=== PATIENT | male | born 1990 | race Caucasian/White ===

== ENCOUNTER 2024-07-24 02:38 | Emergency (ER) | payer MEDICAID ==
[~2024-07-24] VITALS: Ht 177.8 cm; Wt 63.6 kg
[2024-07-24 02:39] VITALS: TEMP 96.4
[2024-07-24 02:51] LABS: BASOPHILS # (AUTO) 0.1 X10'3 (0-0.2); BASOPHILS % (AUTO) 0.4 % (0-1); EOSINOPHILS % (AUTO) 0.2 % (0-6); HEMATOCRIT 45.5 % (42.0-52.0); HEMOGLOBIN 15.2 g/dl (14.0-17.9); LYMPHOCYTES # (AUTO) 0.7 X10'3 (1.1-4.8); LYMPHOCYTES % (AUTO) 3.7 % (21-51); MEAN CORPUSCULAR HEMOGLOBIN 32.6 PG (27.0-31.0); MEAN CORPUSCULAR HGB CONC 33.5 g/dL (33.0-36.5); MEAN CORPUSCULAR VOLUME 97.4 FL (78-98); MEAN PLATELET VOLUME 7.2 FL (7.4-10.4); MONOCYTES # (AUTO) 0.8 X10'3 (0-0.9); MONOCYTES % (AUTO) 3.9 % (2-12); NEUTROPHILS # (AUTO) 18.6 X10'3 (1.8-7.7); NEUTROPHILS % (AUTO) 91.8 % (42-75); PLATELET COUNT 297 X10'3 (140-440); RED BLOOD COUNT 4.68 X10'6 (4.70-6.10); RED CELL DISTRIBUTION WIDTH 12.6 % (11.5-14.5); WHITE BLOOD COUNT 20.3 X10'3 (4.5-11.0)
[2024-07-24 03:05] LABS: ALANINE AMINOTRANSFERASE 143 U/L (12-78); ALBUMIN 3.9 G/DL (3.4-5.0); ALBUMIN/GLOBULIN RATIO 1.1 (1.1-1.5); ALKALINE PHOSPHATASE 113 IU/L (46-116); ANION GAP 11 (8-16); ASPARTATE AMINO TRANSFERASE 147 U/L (10-37); BILIRUBIN,TOTAL 0.2 MG/DL (0.1-1.0); BLOOD UREA NITROGEN 17 MG/DL (7-18); BUN/CREATININE RATIO 9.2 (10.0-20.0); CALCIUM 7.8 MG/DL (8.5-10.1); CHLORIDE 103 MMOL/L (99-107); CREATININE 1.84 MG/DL (0.60-1.10); GLUCOSE 326 MG/DL (70-104); POTASSIUM 4.7 MMOL/L (3.5-5.1); SODIUM 141 MMOL/L (135-145); TOTAL PROTEIN 7.6 G/DL (6.4-8.2); eCRCL 51 ML/MIN; eGFR 42 ML/MIN
[2024-07-24 03:08] LABS: CREATINE KINASE 80 U/L (39-308); MAGNESIUM 2.7 MG/DL (1.5-2.4)
[2024-07-24 03:13] LABS: ETHANOL < 10 MG/DL (<10)
[2024-07-24] MEDS: normal saline 1000ML IV soln IVB ONE (03:28)
[2024-07-24] MEDS ORDERED: levetiracetam inj 1,000 MG in normal saline 100ml IV soln 100 ML IV ONE (03:30)
[2024-07-24] MEDS: levetiracetam-NACL1000mg/100ml 100 ML IV ONE ×2 (03:37→07:45)
[2024-07-24] MEDS: ondansetron/PF 4mg/2ml inj IV ONE (03:49)
[2024-07-24 05:55] LABS: ALBUMIN 3.5 G/DL (3.4-5.0); ANION GAP 8 (8-16); BLOOD UREA NITROGEN 18 MG/DL (7-18); BUN/CREATININE RATIO 14.3 (10.0-20.0); CALCIUM 7.5 MG/DL (8.5-10.1); CHLORIDE 107 MMOL/L (99-107); CREATININE 1.26 MG/DL (0.60-1.10); GLUCOSE 86 MG/DL (70-104); POTASSIUM 4.3 MMOL/L (3.5-5.1); SODIUM 144 MMOL/L (135-145); TOTAL CARBON DIOXIDE 28.8 MMOL/L (24-32); eCRCL 74 ML/MIN; eGFR 66 ML/MIN
[2024-07-24 06:22] LABS: BILIRUBIN,URINE NEGATIVE (Neg); CLARITY,URINE CLEAR (Clear); COLOR,URINE YELLOW (Yellow); GLUCOSE, URINE 250 mg/dl (Neg); KETONES,URINE NEGATIVE (Neg); LEUKOCYTE ESTERASE ,URINE NEGATIVE (Neg); NITRITES, URINE NEGATIVE (Neg); OCCULT BLOOD,URINE TRACE-INTACT (Neg); PROTEIN,URINE 30 mg/dl (Neg); UROBILINOGEN,URINE 0.2 E.U/dL (0.2-1.0)
[2024-07-24 06:24] LABS: URINE AMPHETAMINE SCREEN POSITIVE (Neg); URINE BARBITUATE SCREEN NEGATIVE (Neg); URINE BENZODIAZEPINES SCREEN NEGATIVE (Neg); URINE CANNABINOID SCREEN POSITIVE (Neg); URINE COCAINE SCREEN NEGATIVE (Neg); URINE METHADONE SCREEN NEGATIVE (Neg); URINE OPIATE SCREEN NEGATIVE (Neg); URINE PHENCYCLIDINE SCREEN NEGATIVE (Neg)
[2024-07-24 06:39] LABS: UA COLLECTION TYPE CLN CATCH MIDSTREAM
[2024-07-24 06:42] LABS: BACTERIA,URINE FEW /HPF (Neg); FINE GRANULAR CAST 0-3 /LPF (NEGATIVE); MUCUS STRANDS NONE SEEN /LPF (Neg); SQUAMOUS EPITHELIAL CELL,UR FEW /LPF (FEW); WBC,URINE 0-4 /HPF (0-4)
[2024-07-24] MEDS ORDERED: KEP500T PO (07:59)
[2024-07-24 08:15] VITALS: BP 90/63; PULSE 103; RESP 16; O2SAT 95
== END 2024-07-24 08:15 | disposition home or self-care (01) ==
LOC: ER 02:39
DX: R41.82 Altered mental status, unspecified (principal); G40.909 Epilepsy, unspecified, not intractable, without status epilepticus; R73.9 Hyperglycemia, unspecified
CPT/HCPCS: 36415; 70450; 71045; 80048; 80053; 80305; 80320; 81001; 82550; 83605; 83735; 84484; 85025; 93005; 96374; 96375; 96376; 99285; J1953; J2405; J7030; 96365; 96366

== ENCOUNTER 2024-08-06 13:41 | Emergency (ER) | payer MEDICAID ==
[~2024-08-06] VITALS: Ht 177.8 cm; Wt 67.8 kg
[~2024-08-06 13:41] MED LIST: KEP500T PO
[2024-08-06 13:44] VITALS: TEMP 98.8
[2024-08-06 17:25] LABS: BASOPHILS % (AUTO) 0.4 % (0-1); EOSINOPHILS # (AUTO) 0.1 X10'3 (0-0.9); EOSINOPHILS % (AUTO) 1.1 % (0-6); HEMATOCRIT 36.7 % (42.0-52.0); HEMOGLOBIN 12.5 g/dl (14.0-17.9); LYMPHOCYTES # (AUTO) 1.2 X10'3 (1.1-4.8); LYMPHOCYTES % (AUTO) 11.5 % (21-51); MEAN CORPUSCULAR HGB CONC 34.1 g/dL (33.0-36.5); MEAN PLATELET VOLUME 6.6 FL (7.4-10.4); MONOCYTES # (AUTO) 0.8 X10'3 (0-0.9); MONOCYTES % (AUTO) 7.6 % (2-12); NEUTROPHILS # (AUTO) 8.4 X10'3 (1.8-7.7); NEUTROPHILS % (AUTO) 79.4 % (42-75); PLATELET COUNT 295 X10'3 (140-440); RED CELL DISTRIBUTION WIDTH 12.5 % (11.5-14.5); WHITE BLOOD COUNT 10.6 X10'3 (4.5-11.0)
[2024-08-06 17:47] LABS: ALANINE AMINOTRANSFERASE 173 U/L (12-78); ALBUMIN 2.9 G/DL (3.4-5.0); ALKALINE PHOSPHATASE 137 IU/L (46-116); ANION GAP 4 (8-16); ASPARTATE AMINO TRANSFERASE 138 U/L (10-37); BILIRUBIN,TOTAL 0.3 MG/DL (0.1-1.0); BLOOD UREA NITROGEN 10 MG/DL (7-18); BUN/CREATININE RATIO 14.5 (10.0-20.0); C-REACTIVE PROTEIN 3.73 MG/DL (0.0-0.5); CHLORIDE 103 MMOL/L (99-107); CREATININE 0.69 MG/DL (0.60-1.10); GLUCOSE 99 MG/DL (70-104); POTASSIUM 4.2 MMOL/L (3.5-5.1); SODIUM 138 MMOL/L (135-145); TOTAL CARBON DIOXIDE 31.2 MMOL/L (24-32); TOTAL PROTEIN 5.8 G/DL (6.4-8.2); eCRCL 143 ML/MIN; eGFR > 90 ML/MIN
[2024-08-06 18:04] VITALS: BP 98/64; PULSE 68; RESP 15; O2SAT 100
[2024-08-06] MEDS: ibuprofen tablet 400 MG TABLET PO ONE (18:22)
== END 2024-08-06 18:25 | disposition home or self-care (01) ==
LOC: ER 13:41
DX: M79.89 Other specified soft tissue disorders (principal); Z88.8 Allergy status to other drugs, medicaments and biological substances; Z79.899 Other long term (current) drug therapy
CPT/HCPCS: 36415; 80053; 85025; 86140; 93971; 99284

== ENCOUNTER 2024-09-24 12:22 | Emergency (ER) | payer MEDICAID, OTHER ==
[~2024-09-24] VITALS: Ht 177.8 cm; Wt 68.2 kg
[2024-09-24 12:27] VITALS: BP 129/84; PULSE 71; RESP 16; TEMP 98; O2SAT 98
--- NOTE | 2024-09-24 12:58 | Physician Documentation ---
HPI ~ General Chief Complaint: Medication Request Stated Complaint: MED REQUEST Time Seen by MD: 12:50 History of Present Illness HPI Comments Patient is seen today requesting a bridge of his Suboxone. He states he has been off Suboxone for few months now and states he relapsed on fentanyl stating his last use of fentanyl was yesterday. Patient is wanting to get back on an MA T program. Patient denies any chest pain or shortness of breath or abdominal pain or nausea, vomiting, diarrhea. He has no other concern or complaint at this time. Medication Reconciliation Allergies: Coded Allergies: aripiprazole (Unverified Allergy, Unknown, 08/06/24) divalproex sodium (Unverified Allergy, Unknown, 08/06/24) Scheduled Levetiracetam (Keppra), 1 TAB PO Q12H Review of Systems Constitutional: Denies: chills, fever, weakness Eyes: Denies: pain, blurred vision ENT: Denies: ear pain, nose pain, throat pain, mouth pain Respiratory: Denies: cough, shortness of breath Cardiovascular: Denies: chest pain, palpitations Gastrointestinal: Denies: abdominal pain, nausea, vomiting Genitourinary: Denies: burning, dysuria Male Genitalia: Denies: penile discharge, testicular pain Neurological: Denies: headache, dizziness Musculoskeletal: Denies: pain, swelling Integumentary: Denies: rash, lesions Allergic/Immunologic: Denies: hives, itching Hematologic/Lymphatic: Denies: no symptoms reported Psychiatric: Denies: depression, anxiety Physical Exam Physical Exam Vital Signs: Temperature: 98.0, Source: Temporal, Heart Rate: 71, Respiratory Rate: 16, BP: 129/84, Pulse Oximetry: 98, Weight: 68.200 Oxygen Flow Rate: 0 Physical Exam General: Awake and Alert, no acute distress. HEENT: Conjunctiva pink, Sclera clear, Mucus Membranes moist. Neck: Supple without masses and tenderness. Resp: Unlabored. Lungs clear to auscultation bilaterally. Heart: Regular Rate and rhythm, normal S1 and S2 without murmur, rub or gallop. Abdomen: Soft and non tender no organomegaly Extremities: No cyanosis,clubbing or edema. Skin: Warm and Dry. Progress Results/Orders Results/Orders Vital Signs 09/24/24 12:27 Temp 98.0 Pulse 71 Resp 16 B/P (MAP) 129/84 Pulse Ox 98 O2 Flow Rate 0 Medical Decision Making Findings Patient is seen today requesting a bridge of his Suboxone. He states he has been off Suboxone for few months now and states he relapsed on fentanyl stating his last use of fentanyl was yesterday. Patient is wanting to get back on an MAT program. Patient denies any chest pain or shortness of breath or abdominal pain or nausea, vomiting, diarrhea. He has no other concern or complaint at this time. Patient given prescription of Suboxone 8/2 mg, one film sublingual twice a day for seven days. 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 Patient strongly advised to not start the Suboxone until he has gone at least 72 hours from his last use of fentanyl to avoid any precipitated withdrawal. Patient voiced understanding. Departure Disposition: HOME / SELF CARE / HOMELESS Impression: Primary Impression: Opioid dependence, uncomplicated Condition: Stable Discharge Instructions: Opioid Use Disorder Additional Instructions: Patient given prescription of Suboxone 8/2 mg, one film sublingual twice a day for seven days. 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 Patient strongly advised to not start the Suboxone until he has gone at least 72 hours from his last use of fentanyl to avoid any precipitated withdrawal. Patient voiced understanding. Referrals: NO PRIMARY CARE PROVIDER (PCP) Prescriptions Buprenorphine Hcl/Naloxone Hcl (Suboxone 8 Mg-2 Mg Sl Film) 8 Mg-2 Mg Film 1 STRIP SL BID for 7 Days, #14 STRIP Prov: ALVARO GONZALEZ PAC 09/24/24 Signature Scribe Signature: No scribe Attestation: No scribe ALVARO GONZALEZ PAC September 24, 2024 12:58
[2024-09-24] MEDS ORDERED: BUPR1FIL3 SL (13:02)
== END 2024-09-24 13:14 | disposition home or self-care (01) ==
LOC: ER 12:22
DX: F11.20 Opioid dependence, uncomplicated (principal); Z76.0 Encounter for issue of repeat prescription; Z88.8 Allergy status to other drugs, medicaments and biological substances; Z79.899 Other long term (current) drug therapy
CPT/HCPCS: 99281

== ENCOUNTER 2024-10-05 11:11 | Emergency (ER) | payer OTHER ==
[~2024-10-05] VITALS: Ht 177.8 cm; Wt 69.9 kg
[2024-10-05 11:34] VITALS: BP 129/78; PULSE 72; RESP 18; TEMP 97.8; O2SAT 98
[2024-10-05 12:04] LABS: BASOPHILS # (AUTO) 0.1 X10'3 (0-0.2); BASOPHILS % (AUTO) 0.9 % (0-1); EOSINOPHILS # (AUTO) 0.3 X10'3 (0-0.9); EOSINOPHILS % (AUTO) 4.3 % (0-6); HEMATOCRIT 41.8 % (42.0-52.0); LYMPHOCYTES # (AUTO) 1.7 X10'3 (1.1-4.8); LYMPHOCYTES % (AUTO) 28.1 % (21-51); MEAN CORPUSCULAR HEMOGLOBIN 31.1 PG (27.0-31.0); MEAN CORPUSCULAR HGB CONC 33.4 g/dL (33.0-36.5); MEAN PLATELET VOLUME 6.8 FL (7.4-10.4); MONOCYTES # (AUTO) 0.6 X10'3 (0-0.9); MONOCYTES % (AUTO) 9.9 % (2-12); NEUTROPHILS # (AUTO) 3.5 X10'3 (1.8-7.7); NEUTROPHILS % (AUTO) 56.8 % (42-75); PLATELET COUNT 275 X10'3 (140-440); RED CELL DISTRIBUTION WIDTH 12.8 % (11.5-14.5); WHITE BLOOD COUNT 6.2 X10'3 (4.5-11.0)
[2024-10-05 12:13] LABS: ALANINE AMINOTRANSFERASE 26 U/L (12-78); ALBUMIN 3.2 G/DL (3.4-5.0); ALBUMIN/GLOBULIN RATIO 0.9 (1.1-1.5); ALKALINE PHOSPHATASE 83 IU/L (46-116); ANION GAP 7 (8-16); ASPARTATE AMINO TRANSFERASE 19 U/L (10-37); BILIRUBIN,TOTAL 0.3 MG/DL (0.1-1.0); BLOOD UREA NITROGEN 17 MG/DL (7-18); BUN/CREATININE RATIO 21.5 (10.0-20.0); CALCIUM 8.7 MG/DL (8.5-10.1); CHLORIDE 104 MMOL/L (99-107); CREATININE 0.79 MG/DL (0.60-1.10); GLUCOSE 65 MG/DL (70-104); POTASSIUM 4.1 MMOL/L (3.5-5.1); SODIUM 144 MMOL/L (135-145); TOTAL CARBON DIOXIDE 33.2 MMOL/L (24-32); TOTAL PROTEIN 6.8 G/DL (6.4-8.2); eCRCL 129 ML/MIN; eGFR > 90 ML/MIN
--- NOTE | 2024-10-05 13:05 | Physician Documentation ---
History of Present Illness ~ Chief Complaint: Weakness Stated Complaint: "I NEED TO GET BLOOD WORK DONE" Time Seen by MD: 13:02 OK to notify your PCP?: No HPI Patient reports chronic fatigue. Acknowledges a long history of psychiatric disturbances and takes multiple antipsychotic medications for that time there are no alleviating or exacerbating suture features but just feels like he has not been himself denies any acute issues states I just wanted to get it taken care of Day of Onset: Oct 05, 2024 Medication Reconciliation Allergies: Coded Allergies: aripiprazole (Unverified Allergy, Unknown, 10/05/24) divalproex sodium (Unverified Allergy, Unknown, 10/05/24) Scheduled Levetiracetam (Keppra), 1 TAB PO Q12H Discontinued Medications Buprenorphine Hcl/Naloxone Hcl (Suboxone 8 Mg-2 Mg Sl Film), 1 STRIP SL BID Discontinued Reason: Auto Discontinued Review of Systems All Other Systems at this time: Reviewed and Negative ROS As stated above in the HPI, otherwise all systems are reviewed and negative. Physical Exam Vital Signs: Temperature: 97.8, Source: Temporal, Heart Rate: 72, Respiratory Rate: 18, BP: 129/78, Pulse Oximetry: 98, Weight: 69.900 Physical Exam General: Alert, no apparent distress. Neurologic: Oriented x4. Psychiatric: Normal mood and affect. Skin: Normal color, warm and dry. No edema, no ecchymosis. EENT: pharynx normal Progress Results/Orders Results/Orders Completed Orders - GORGE NAM PAPER STRIPPER Cbc/Diff (10/05/24 11:38) CMP (10/05/24 11:38) Vital Signs 10/05/24 11:34 Temp 97.8 Pulse 72 Resp 18 B/P (MAP) 129/78 Pulse Ox 98 Laboratory Tests Test 10/05/24 11:46 White Blood Count 6.2 Red Blood Count 4.50 L Hemoglobin 14.0 Hematocrit 41.8 L Mean Corpuscular Volume 93.0 Mean Corpuscular Hemoglobin 31.1 H Mean Corpuscular Hemoglobin Concent 33.4 Red Cell Distribution Width 12.8 Platelet Count 275 Mean Platelet Volume 6.8 L Neutrophils (%) (Auto) 56.8 Lymphocytes (%) (Auto) 28.1 Monocytes (%) (Auto) 9.9 Eosinophils (%) (Auto) 4.3 Basophils (%) (Auto) 0.9 Neutrophils # (Auto) 3.5 Lymphocytes # (Auto) 1.7 Monocytes # (Auto) 0.6 Eosinophils # (Auto) 0.3 Basophils # (Auto) 0.1 CBC Comment Sodium Level 144 Potassium Level 4.1 Chloride Level 104 Carbon Dioxide Level 33.2 H Anion Gap 7 L Blood Urea Nitrogen 17 Creatinine 0.79 Estimated GFR/1.73 m2 > 90 BUN/Creatinine Ratio 21.5 H Glucose Level 65 L Calcium Level 8.7 Total Bilirubin 0.3 Aspartate Amino Transf (AST/SGOT) 19 Alanine Aminotransferase (ALT/SGPT) 26 Alkaline Phosphatase 83 Total Protein 6.8 Albumin 3.2 L Globulin 3.6 Albumin/Globulin Ratio 0.9 L Chemistry Comments Medical Decision Making Findings Complete further evaluation patient to have her face to wait for laboratory results patient eloped from ED Differential Dx:Considerations: Include: anemia, CVA, dehydration, dysrhythmia, electrolyte imbalance, encephalopathy, Guillain-[place], hypoglycemia, hypotension, hypovolemia, labyrinthitis, Meniere's disease, myasathenia gravis, myocardial infarction, pulmonary embolus, renal failure, respiratory failure, TIA, VBI, vertigo central, vertigo peripheral, vestibular neuronitis, other Departure Disposition: 01 HOME / SELF CARE / HOMELESS Impression: Primary Impression: Dehydration Additional Impression: Fatigue Condition: Stable Referrals: NO PRIMARY CARE PROVIDER (PCP) Education Educated: Patient Educated regarding: diagnosis Signature Scribe Signature: r Attestation: The note accurately reflects work and decisions made by me.Gorge Lutz NP 10/05/24 18:57 GORGE NAM NP Oct 05, 2024 13:05
== END 2024-10-05 14:33 | disposition left against medical advice (07) ==
LOC: ER 11:12
DX: E86.0 Dehydration (principal); R53.83 Other fatigue; Z88.8 Allergy status to other drugs, medicaments and biological substances; Z79.899 Other long term (current) drug therapy
CPT/HCPCS: 36415; 80053; 85025; 99283

== ENCOUNTER 2024-10-17 11:24 | Emergency (ER) | payer OTHER ==
[~2024-10-17] VITALS: Ht 177.8 cm; Wt 65.7 kg
[2024-10-17 11:37] VITALS: TEMP 98; O2SAT 98
--- NOTE | 2024-10-17 13:55 | Physician Documentation ---
History of Present Illness ~ General Chief Complaint: Mental Health Eval Stated Complaint: SI/WITHDRAWL FROM FENTYNAL Time Seen by MD: 12:53 OK to notify your PCP?: Yes Source: patient Mode of Arrival: POV Exam Limitations: no limitations History of Present Illness Initial Comments 34-year-old male with chief complaint feeling nauseated and pain all over his body since this morning. He usually smokes a gram of fentanyl a day and last used yesterday morning around 11:00 a.m.. This morning around 930am he took one tablet of suboxone 8mg which he was prescribed a week ago and state he decided to start it today. He states that he has continued to feel more and more ill. He has been using at least a gram of fentanyl a day for 3months now and wants to get off of it. No chest pain, SOB, abdominal pain, nausea. Medication Reconciliation Allergies: Coded Allergies: aripiprazole (Unverified Allergy, Unknown, 10/05/24) divalproex sodium (Unverified Allergy, Unknown, 10/05/24) Scheduled Levetiracetam (Keppra), 1 TAB PO Q12H Past Medical History Past Medical History: No Pertinent History Review of Systems All Other Systems at this time: Reviewed and Negative Physical Exam Physical Exam Vital Signs: Temperature: 98.0, Source: Temporal, Heart Rate: 80, Respiratory Rate: 16, BP: 131/86, Pulse Oximetry: 98, Weight: 65.700 Oxygen Flow Rate: 0 Physical Exam GENERAL: Alert, APPEARS UNCOMFORTABLE, MOVING AROUND ON GURNEY. HEENT: NCAT, EOMI, PERRL, normal oropharynx, moist oral mucosa. NECK: Supple, trachea midline. CARDIAC: Regular rate and rhythm, no murmurs, rubs, or gallops. PV: Equal distal pulses. No lower extremity edema, cap refill less than 2 seconds. RESPIRATORY: Equal breath sounds, clear to auscultation bilaterally, no respiratory distress. GASTROINTESTINAL: Non distended, soft, nontender, No guarding or rebound. MUSCULOSKELETAL: Normal range of motion, nontender, no swelling. Normal gait. NEUROLOGICAL: Awake, alert, and oriented x 3. SKIN: Warm/dry, no pallor, no rash. PSYCH: Alert and appropriate. Affect congruent with mood. Speech is clear. Good eye contact. Progress Progress Note Patient was originally triaged as suicidal ideations however patient denies any suicidal ideations he states he feels terrible and wants help but that he does not want to kill himself. Results/Orders Reviewed/noted all lab results: Yes Results/Orders Completed Orders - DOMENIC BROWNE Buprenorphine/Naloxone Sl Film (Suboxone (10/17/24 13:27) Normal Saline 1000ml (Sodium Chloride 10 (10/17/24 13:30) Vital Signs 10/17/24 11:37 Temp 98.0 Pulse 80 Resp 16 B/P (MAP) 131/86 Pulse Ox 98 O2 Flow Rate 0 Medical Decision Making Differential Diagnosis Patient has no evidence for any secondary medical problems which could have occurred as a result or in relationship to his opiate withdrawal. Patient has not used fentanyl in 24hours and thus it was safe to initate suboxone which we did. Patient's vital signs where stable. There was no indication to keep him here on a hold for further work up. Departure Time of Disposition: 13:54 Disposition: 01 HOME / SELF CARE / HOMELESS Impression: Primary Impression: Opiate withdrawal Condition: Stable Discharge Instructions: Opioid Pain Medicine Management, [id number] Additional Instructions: I DOUBLED YOUR DOSAGE OF SUBOXONE DUE TO THE AMOUNT OF FENTANYL YOU HAVE BEEN USING MAKE SURE TO GET IN WITH A CLINIC WHO CAN CONTINUE TO PRESCRIBE THE SUBOXONE AND ASSIST YOU FURTHER WITH THIS PROCESS Referrals: NO PRIMARY CARE PROVIDER (PCP) Prescriptions Buprenorphine Hcl/Naloxone Hcl (Suboxone 8 Mg-2 Mg Sl Film) 8 Mg-2 Mg Film 2 STRIP SL DAILY for 7 Days, #14 STRIP DX: OPIATE DEPENDENCE F11.2 Prov: DOMENIC BROWNE 10/17/24 Education Educated: Patient Educated regarding: diagnosis, treatment, need for follow up Signature Scribe Signature: X Attestation: DOMENIC LEES Oct 17, 2024 13:55
[2024-10-17] MEDS ORDERED: BUPR1FIL3 SL (13:58)
[2024-10-17] MEDS: buprenorphine/naloxone 8MG-2MG SUBlingual film SL STA (14:23)
[2024-10-17] MEDS: normal saline 1000ML IV soln IVB ONE (14:23)
[2024-10-17 15:29] VITALS: BP 125/73; PULSE 55; RESP 15
== END 2024-10-17 15:32 | disposition home or self-care (01) ==
LOC: ER 11:25
DX: F11.23 Opioid dependence with withdrawal (principal); Z88.8 Allergy status to other drugs, medicaments and biological substances; Z79.899 Other long term (current) drug therapy
CPT/HCPCS: 96360; 99283; J7030

== ENCOUNTER 2024-10-20 16:33 | Emergency (ER) | payer OTHER ==
[~2024-10-20] VITALS: Ht 177.8 cm; Wt 54.8 kg
[~2024-10-20 16:33] MED LIST changes: +BUPR1FIL3 SL
--- NOTE | 2024-10-20 16:42 | Physician Documentation ---
History of Present Illness ~ Chief Complaint: Mental Health Eval Stated Complaint: SI/WITHDRAWL FROM MULTIPLE DRUGS Time Seen by MD: 16:41 OK to notify your PCP?: Yes Source: patient Mode of Arrival: POV Exam Limitations: no limitations HPI 34-year-old male presents with suicidal ideation. He states that he is withdrawing from fentanyl, benzos and other drugs. He states that he has been seen for mental health things before but usually ends up walking out before being treated. She has a plan to hang himself today. History as above: Patient adds that he "just needs to be around someone and people for support" Day of Onset: Oct 20, 2024 Medication Reconciliation Allergies: Coded Allergies: aripiprazole (Unverified Allergy, Unknown, 10/05/24) divalproex sodium (Unverified Allergy, Unknown, 10/05/24) Scheduled Buprenorphine Hcl/Naloxone Hcl (Suboxone 8 Mg-2 Mg Sl Film), 2 STRIP SL DAILY Levetiracetam (Keppra), 1 TAB PO Q12H Past Medical History Past Medical History: No Pertinent History Review of Systems All Other Systems at this time: Reviewed and Negative Physical Exam Vital Signs: RN Vital Signs have been reviewed: Yes, Temperature: 99.3, Source: Temporal, Heart Rate: 119, Respiratory Rate: 15, BP: 118/56, Pulse Oximetry: 97, Weight: 54.800 Pulse Oximetry Reflects: adequate oxygenation Physical Exam General: Alert, no distress. HEENT: No injection, moist mucous membranes. Neck: Full range of motion. Respiratory: No respiratory distress, equal chest rise and fall. Chest: No accessory muscle use. Cardiovascular: Regular rate and rhythm. Gastrointestinal: Nondistended. Extremities: Normal range of motion, no deformity. Neurologic: Oriented x4. Psychiatric: Normal mood and affect. Skin: Normal color, warm and dry. Progress Results/Orders Results/Orders Completed Orders - GORGE NAM NP Clonidine Tablet (Catapres Tablet) (10/20/24 17:15) Vital Signs 10/20/24 16:35 Temp 99.3 Pulse 119 Resp 15 B/P (MAP) 118/56 Pulse Ox 97 Medical Decision Making Findings This patient clearly has a substance abuse issue. However he presents as hemodynamically stable. Did treat him for fentanyl withdrawal and anxiety via clonidine. I am going to medically clear him for [facility]. Patient's responsible for requesting admission Differential Dx:Considerations: Include: Alcohol abuse, Anxiety, Bipolar disorder, Conversion disorder, Depression, Encephaloathy, Homicidal, Panic disorder, Personality disorder, Schizophrenia, Substance abuse, Suicidal, Other Departure Disposition: 01 HOME / SELF CARE / HOMELESS Impression: Primary Impression: Opiate withdrawal Additional Impression: Opioid dependence, uncomplicated Condition: Stable Discharge Instructions: Medical Screening Exam, Substance Use Disorder and Mental Illness Referrals: NO PRIMARY CARE PROVIDER (PCP) Additional Comment Medical Screen Exam This patient recieved a medical screening examination. After reviewing the individual's medical complaints with presenting symptoms and performing an appropriate physical examination, it was determined that no immediate life- threatening emergency medical condition is present. This individual is also not a women having contractions. Signature Scribe Signature: h Attestation: Scribed for Gorge Nam Np by Gorge Lutz NP . 10/20/24 17:18 ELIESER PERALES Oct 20, 2024 16:42 GORGE NAM NP Oct 20, 2024 17:18
[2024-10-20] MEDS: cloNIDine 0.1 mg tablet PO ONE ×2 (17:23→17:26)
[2024-10-20 17:29] VITALS: BP 129/77; PULSE 64; RESP 16; TEMP 98.7; O2SAT 98
== END 2024-10-20 17:30 | disposition home or self-care (01) ==
LOC: ER 16:34
DX: F11.23 Opioid dependence with withdrawal (principal); R45.851 Suicidal ideations
CPT/HCPCS: 99283

== ENCOUNTER 2024-10-22 10:00 | Emergency (ER) | payer OTHER ==
[~2024-10-22] VITALS: Ht 177.8 cm; Wt 59.1 kg
--- NOTE | 2024-10-22 10:27 | Physician Documentation ---
History of Present Illness ~ Chief Complaint: 5150 Stated Complaint: MH Time Seen by MD: 10:20 OK to notify your PCP?: Yes Mode of Arrival: POV HPI 34-year-old male with psych illness was brought to ED for being gravely disabled and having suicidal ideation. He told me that his mind is so tight. Medication Reconciliation Allergies: Coded Allergies: aripiprazole (Unverified Allergy, Unknown, 10/05/24) divalproex sodium (Unverified Allergy, Unknown, 10/05/24) Scheduled Levetiracetam (Keppra), 1 TAB PO Q12H Levetiracetam (Levetiracetam), 1 TAB PO Q12H, (Reported) Methadone Hcl* (Dolophine*), 50 MG PO QAM, (Reported) Discontinued Medications Buprenorphine Hcl/Naloxone Hcl (Suboxone 8 Mg-2 Mg Sl Film), 2 STRIP SL DAILY Discontinued Reason: patient no longer taking Past Medical History Past Medical History: No Pertinent History Review of Systems ROS As stated above in the HPI, otherwise all systems are reviewed and negative. Physical Exam Vital Signs: Temperature: 98.0, Source: Oral, Heart Rate: 94, Respiratory Rate: 18, BP: 138/88, Pulse Oximetry: 97, Weight: 59.090 Oxygen Flow Rate: 0 Physical Exam Reviewed vital signs and they are well within normal range. Const: Not in acute cardiopulmonary distress but quite a bit of mental distress Head: Atraumatic Eyes: Normal Conjunctiva ENT: Normal External Ears, Nose and Mouth. Moist mucous membranes Neck: Full range of motion. No meningismus Resp: Clear to auscultation bilaterally. Normal work of breathing Cardio: Regular rate and rhythm, no murmurs. Skin well perfused, heart rate 96 beats per minute Abd: Soft, non-tender, non-distended. Normal bowel sounds. No rebound or guarding Skin: No petechiae or rashes. Warm and dry Back: No midline or flank tenderness Ext: No cyanosis, or edema Neuro: Awake and alert Psych: Normal Mood and Affect Progress Results/Orders Results/Orders Orders - OHN,GOPAL Hernandez MD Med Rec (10/22/24 10:20) Close Observation Level (10/22/24 10:20) Covid19 Binax Poc Result Entry (10/22/24 10:20) Substance Use Navigator (10/22/24 10:20) Regular Diet (10/22/24 Lunch) Substance Use Navigator (10/22/24 12:28) Methadone Tablet (Dolophine Tablet) (10/23/24 08:00) Levetiracetam Tablet (Keppra Tablet) (10/22/24 20:00) Completed Orders - GOPAL CLEANING MD Cbc/Diff (10/22/24 10:20) Drug Screen, Urine (10/22/24 10:20) Ethanol (10/22/24 10:20) TSH (10/22/24 10:20) BMP (10/22/24 10:20) Ua With Microscopic (10/22/24 10:12) Haloperidol Tablet (Haldol Tablet) (10/22/24 11:50) Lorazepam Tablet (Ativan Tablet) (10/22/24 11:50) Diphenhydramine Capsule (Benadryl Capsul (10/22/24 11:50) Vital Signs 10/22/24 10/22/24 10/22/24 10/22/24 10:04 10:25 17:22 19:02 Temp 98.0 97.5 Pulse 94 75 Resp 18 16 B/P (MAP) 138/88 105/68 (80) Pulse Ox 97 97 O2 Flow Rate 0 10/23/24 05:20 Temp 97.7 Pulse 63 Resp 16 B/P (MAP) 109/71 (84) Pulse Ox 99 Laboratory Tests Test 10/22/24 10:12 10/22/24 10:42 Urine Specimen Description Non-specified Urine Color Yellow Urine Clarity Slightly cloudy Urine pH 6.0 Urine Specific [place] >=1.030 Urine Protein Trace Urine Glucose (UA) Negative Urine Ketones Trace H Urine Occult Blood Negative Urine Nitrite Negative Urine Bilirubin Small Urine Urobilinogen 0.2 Urine Leukocyte Esterase Negative Urine RBC 0-2 Urine WBC 0-4 Urine Squamous Epithelial Cells Few Urine Renal Cells Few Urine Amorphous Urates 1+ Urine Bacteria Few Urine Hyaline Casts 0-3 Urine Fine Granular Casts 0-3 Urine Coarse Granular Casts Urine Mucus Moderate Volume Urine Centrifuged 10 ml Urine Comment Urine Opiates Screen Negative Urine Methadone Screen Positive Urine Fentanyl Screen Positive H Urine Barbiturates Screen Negative Urine Phencyclidine Screen Negative Urine Amphetamines Screen Negative Urine Benzodiazepines Screen Negative Urine Cocaine Screen Negative Urine Cannabinoids Screen Positive Drug Screen Comment SARS-CoV-2 Antigen (Rapid) Negative White Blood Count 10.9 Red Blood Count 4.91 Hemoglobin 15.1 Hematocrit 44.7 Mean Corpuscular Volume 91.1 Mean Corpuscular Hemoglobin 30.8 Mean Corpuscular Hemoglobin Concent 33.8 Red Cell Distribution Width 12.9 Platelet Count 292 Mean Platelet Volume 6.7 L Neutrophils (%) (Auto) 64.7 Lymphocytes (%) (Auto) 24.8 Monocytes (%) (Auto) 9.3 Eosinophils (%) (Auto) 0.3 Basophils (%) (Auto) 0.9 Neutrophils # (Auto) 7.0 Lymphocytes # (Auto) 2.7 Monocytes # (Auto) 1.0 H Eosinophils # (Auto) 0.0 Basophils # (Auto) 0.1 CBC Comment Sodium Level 141 Potassium Level 3.5 Chloride Level 104 Carbon Dioxide Level 30.2 Anion Gap 7 L Blood Urea Nitrogen 29 H Creatinine 1.09 Estimated GFR/1.73 m2 77 BUN/Creatinine Ratio 26.6 H Glucose Level 119 H Calcium Level 9.1 Albumin 4.1 Thyroid Stimulating Hormone (TSH) 3.44 Chemistry Comments Ethyl Alcohol Level < 10 Medical Decision Making Findings During the physical examination, the findings suggestive of acute life- threatening condition such as JVD, tracheal deviation, acidotic breathing, noisy stridorous breath sounds, pulses paradoxus, muffled heart sounds, unequal breath sounds, abdominal rigidity and rebound tenderness, focal neurological deficits, cool clammy skin, severe hypotension, severe tachycardia or bradycardia are absent. Reviewed labs and they are well within normal range. Tox screen is positive for weed and fentanyl. Transfer orders for [facility]: At this time there is no evidence of an emergent medical condition that would preclude (admission/transfer) to a psychiatric unit via [facility] protocol for further psychiatric, as well as medical evaluation and treatment. At this time I have no reason to believe that transfer via [facility] protocol would have serious medical compromise in the patient's health. The patient is medically cleared for above. Clinical Status: unchanged Mental Status: Appearance: No change Behavior: Stable Mood/Affect: No change Thought Process: No change Insight/Judgment: No change Suicidal/Homicidal Ideation: Continues to be on hold Vital signs stable Physical Examination: Unchanged Medications Administered: None Treatment Plan: Continue to monitor Continue current medications Reassess for changes in mental status Plan for next steps : Awaiting to be evaluated by mental health today Disposition: Patient remains on hold for psychiatric evaluation/placement. No acute changes in condition. Patient remains cooperative Plan to reassess during next shift. Departure Disposition: 02 SHORT TERM HOSPITAL Impression: Primary Impression: Suicidal ideation Additional Impression: Gravely disabled Referrals: NO PRIMARY CARE PROVIDER (PCP) Signature Scribe Signature: None Attestation: My dictation GOPAL CLEANING MD Oct 22, 2024 10:27
[2024-10-22 10:53] LABS: BASOPHILS # (AUTO) 0.1 X10'3 (0-0.2); BASOPHILS % (AUTO) 0.9 % (0-1); EOSINOPHILS % (AUTO) 0.3 % (0-6); HEMATOCRIT 44.7 % (42.0-52.0); HEMOGLOBIN 15.1 g/dl (14.0-17.9); LYMPHOCYTES # (AUTO) 2.7 X10'3 (1.1-4.8); LYMPHOCYTES % (AUTO) 24.8 % (21-51); MEAN CORPUSCULAR HEMOGLOBIN 30.8 PG (27.0-31.0); MEAN CORPUSCULAR HGB CONC 33.8 g/dL (33.0-36.5); MEAN CORPUSCULAR VOLUME 91.1 FL (78-98); MEAN PLATELET VOLUME 6.7 FL (7.4-10.4); MONOCYTES % (AUTO) 9.3 % (2-12); NEUTROPHILS % (AUTO) 64.7 % (42-75); PLATELET COUNT 292 X10'3 (140-440); RED BLOOD COUNT 4.91 X10'6 (4.70-6.10); RED CELL DISTRIBUTION WIDTH 12.9 % (11.5-14.5); WHITE BLOOD COUNT 10.9 X10'3 (4.5-11.0)
[2024-10-22 10:57] LABS: BILIRUBIN,URINE SMALL (Neg); CLARITY,URINE SLIGHTLY CLOUDY (Clear); COLOR,URINE YELLOW (Yellow); GLUCOSE, URINE NEGATIVE (Neg); KETONES,URINE TRACE mg/dl (Neg); LEUKOCYTE ESTERASE ,URINE NEGATIVE (Neg); NITRITES, URINE NEGATIVE (Neg); OCCULT BLOOD,URINE NEGATIVE (Neg); PROTEIN,URINE TRACE mg/dl (Neg); UROBILINOGEN,URINE 0.2 E.U/dL (0.2-1.0)
[2024-10-22 11:06] LABS: UA COLLECTION TYPE NON-SPECIFIED
[2024-10-22 11:09] LABS: BACTERIA,URINE FEW /HPF (Neg)
[2024-10-22 11:10] LABS: MUCUS STRANDS MODERATE /LPF (Neg); URINE AMPHETAMINE SCREEN NEGATIVE (Neg); URINE BARBITUATE SCREEN NEGATIVE (Neg); URINE BENZODIAZEPINES SCREEN NEGATIVE (Neg); URINE CANNABINOID SCREEN POSITIVE (Neg); URINE COCAINE SCREEN NEGATIVE (Neg); URINE METHADONE SCREEN POSITIVE (Neg); URINE OPIATE SCREEN NEGATIVE (Neg); URINE PHENCYCLIDINE SCREEN NEGATIVE (Neg)
[2024-10-22 11:11] LABS: RENAL CELLS, URINE FEW /HPF
[2024-10-22 11:12] LABS: AMORPHOUS URATES 1+; HYALINE CASTS 0-3 /LPF (NEGATIVE)
[2024-10-22 11:13] LABS: RBC,URINE 0-2 /HPF (0-2); SQUAMOUS EPITHELIAL CELL,UR FEW /LPF (FEW); WBC,URINE 0-4 /HPF (0-4)
[2024-10-22 11:18] LABS: ALBUMIN 4.1 G/DL (3.4-5.0); ANION GAP 7 (8-16); BLOOD UREA NITROGEN 29 MG/DL (7-18); BUN/CREATININE RATIO 26.6 (10.0-20.0); CALCIUM 9.1 MG/DL (8.5-10.1); CHLORIDE 104 MMOL/L (99-107); CREATININE 1.09 MG/DL (0.60-1.10); GLUCOSE 119 MG/DL (70-104); POTASSIUM 3.5 MMOL/L (3.5-5.1); SODIUM 141 MMOL/L (135-145); THYROID STIMULATING HORMONE 3.44 ulU/ml (0.34-4.50); TOTAL CARBON DIOXIDE 30.2 MMOL/L (24-32); eCRCL 79 ML/MIN; eGFR 77 ML/MIN
[2024-10-22 11:19] LABS: FINE GRANULAR CAST 0-3 /LPF (NEGATIVE)
[2024-10-22 11:25] LABS: ETHANOL < 10 MG/DL (<10)
[2024-10-22] MEDS: LORazepam 1 MG tablet PO ONE (12:06)
[2024-10-22] MEDS: haloperidol 5mg tablet PO ONE (12:06)
[2024-10-22] MEDS: diphenhydrAMINE 25mg capsule PO ONE (12:07)
[2024-10-22] MEDS ORDERED: METH-603 PO (13:05)
[2024-10-22] MEDS ORDERED: LEVE-21 PO (13:20)
[2024-10-22] MEDS: levetiracetam 250mg tablet PO SCH (20:23)
[2024-10-22] MEDS: traZODone 50mg tablet PO ONE (23:36)
[2024-10-23] MEDS: diphenhydrAMINE 25mg capsule PO ONE (00:02)
[2024-10-23] MEDS: haloperidol 5mg tablet PO ONE (00:02)
[2024-10-23] MEDS: LORazepam 1 MG tablet PO ONE (00:02)
[2024-10-23 05:20] VITALS: BP 109/71; PULSE 63; RESP 16; TEMP 97.7; O2SAT 99
[2024-10-23] MEDS: methadone 10mg tablet PO SCH (08:17)
[2024-10-23] MEDS ORDERED: traZODone 50mg tablet PO SCH (20:00)
== END 2024-10-23 11:15 | disposition home or self-care (01) ==
LOC: ER 10:01
DX: R45.851 Suicidal ideations (principal); Z73.6 Limitation of activities due to disability; Z20.822 Contact with and (suspected) exposure to COVID-19; Z79.899 Other long term (current) drug therapy
CPT/HCPCS: 36415; 80048; 80305; 80320; 81001; 84443; 85025; 87811; 99285; Q0163